=== PATIENT | male | born 1955 | race Caucasian/White ===

== ENCOUNTER 2017-12-15 19:44 | Inpatient (IN) | payer MEDICARE, OTHER, MEDICAID ==
[2017-12-15] MEDS ORDERED: FUROSEMIDE 40 MG INJ (19:46)
[2017-12-15] MEDS: IPRATROPIUM (NEB) 0.5 MG/2.5 ML AMP INH (19:58)
[2017-12-15] MEDS: ALBUTEROL 0.5% (NEB) 2.5 MG/0.5 ML AMP INH (19:58)
[2017-12-15] MEDS: FUROSEMIDE 40 MG INJ IV (20:01)
[2017-12-15 20:06] LABS: ADD MAN DIFF? NO
[2017-12-15 20:08] LABS: WHITE BLOOD COUNT 8.3 10^3/ul (4.8-10.8)
[2017-12-15 20:08] LABS: BASOPHIL # 0.1 10^3/ul (0.0-0.1); BASOPHILS % 0.7 % (0.0-2.0); EOSINOPHILS # 0.2 10^3/ul (0.0-0.5); EOSINOPHILS % 2.5 % (0.0-7.0); HEMATOCRIT 43.8 % (42.0-52.0); HEMOGLOBIN 13.6 g/dl (14.0-18.0); LYMPHOCYTES # 2.6 10^3/ul (0.8-2.9); LYMPHOCYTES % 31.7 % (15.0-51.0); MEAN CORPUSCULAR HEMOGLOBIN 26.6 pg (29.0-33.0); MEAN CORPUSCULAR HGB CONC 31.1 g/dl (32.0-37.0); MEAN CORPUSCULAR VOLUME 85.7 fl (82.0-101.0); MEAN PLATELET VOLUME 11.1 fl (7.4-10.4); MONOCYTE # 0.7 10^3/ul (0.3-0.9); MONOCYTES % 8.9 % (0.0-11.0); NEUTROPHIL # 4.7 10^3/ul (1.6-7.5); NEUTROPHILS % 55.8 % (39.0-77.0); PLATELET COUNT 208 10^3/UL (140-415); RED BLOOD COUNT 5.11 10^6/ul (4.70-6.10); RED CELL DISTRIBUTION WIDTH 14.5 % (11.5-14.5)
[2017-12-15] MEDS: NITROGLYCERIN 50 MG/D5W (PMX) 250 ML IV (20:17)
[2017-12-15 20:25] LABS: ALANINE AMINOTRANSFERASE 46 IU/L (13-69); ALBUMIN 4.7 g/dl (3.3-4.9); ALBUMIN/GLOBULIN RATIO 1.38; ALKALINE PHOSPHATASE 62 IU/L (42-121); ANION GAP 18 (8-16); ASPARTATE AMINO TRANSFERASE 41 IU/L (15-46); BILIRUBIN,INDIRECT 0.7 mg/dl (0-1.1); BILIRUBIN,TOTAL 0.7 mg/dl (0.2-1.3); BLOOD UREA NITROGEN 18 mg/dl (7-20); CALCIUM 8.9 mg/dl (8.4-10.2); CARBON DIOXIDE 28 mmol/L (21-31); CHLORIDE 102 mmol/L (97-110); CREATINE KINASE 224 IU/L (23-200); CREATININE 0.93 mg/dl (0.61-1.24); GLUCOSE 213 mg/dl (70-220); POTASSIUM 3.8 mmol/L (3.5-5.1); SODIUM 144 mmol/L (135-144); TOTAL PROTEIN 8.1 g/dl (6.1-8.1)
[2017-12-15 20:34] LABS: LACTIC ACID 2.9 mmol/L (0.5-2.0)
[2017-12-15 20:35] LABS: INR 0.94; PARTIAL THROMBOPLASTIN TIME 28.5 Sec (25.0-35.0); PROTIME 12.7 Sec (11.9-14.9)
[2017-12-15 20:37] LABS: B-TYPE NATRIURETIC PEPTIDE 1020 PG/ML (0-125); CK INDEX 1.1
[2017-12-15 20:39] LABS: ADD UMIC YES; CK-MB 2.43 ng/ml (0.0-2.4); TROPONIN-I < 0.012 ng/ml (0.000-0.120); UR ASCORBIC ACID NEGATIVE (NEGATIVE); UR BILIRUBIN (Dip) NEGATIVE (NEGATIVE); UR BLOOD (Dip) NEGATIVE (NEGATIVE); UR CLARITY CLOUDY (CLEAR); UR COLOR YELLOW (YELLOW); UR GLUCOSE (Dip) 2+ mg/dL (NEGATIVE); UR KETONES (Dip) NEGATIVE (NEGATIVE); UR LEUKOCYTE ESTERASE (Dip) NEGATIVE Leu/ul (NEGATIVE); UR NITRITE (Dip) NEGATIVE (NEGATIVE); UR RBC 0 /HPF (0-5); UR SPECIFIC GRAVITY (Dip) 1.011 (1.003-1.030); UR TOTAL PROTEIN (Dip) 3+ mg/dl (NEGATIVE); UR UROBILINOGEN (Dip) NEGATIVE (NEGATIVE); UR WBC 13 /HPF (0-5)
[2017-12-15 21:50] LABS: AADO2 Arterial 295.9 mmHg (7.0-24.0); Allen Test ACCEPTAB; Arterial Base Excess 2.8 mmol/L (-3.0-3); Arterial Blood Gas Oxygen Sat 99.4 mmHG (95.0-98.0); Arterial COHb 0.3 % (0.0-3.0); Arterial Fraction of Oxyhgb 98.7 % (93.0-99.0); Arterial HCO3 27.6 mmol/L (22.0-26.0); Arterial MetHb 0.4 % (0.0-1.5); Arterial Total Hemglobin 13.4 g/dl (12.0-18.0); Blood Gas IEPAP 15/5; Blood Gas PS 10; MODE BCPAP; Site Right Radial
[2017-12-15 22:36] LABS: LACTIC ACID 1.2 mmol/L (0.5-2.0)
[2017-12-15] MEDS: CEFTRIAXONE 1 GM/50 ML (PMX) 50 ML IVPB (23:13)
[2017-12-16] MEDS ORDERED: morphine 2 MG INJ IV (05:00)
[2017-12-16] MEDS ORDERED: ONDANSETRON 4 MG INJ IV (05:00)
[2017-12-16] MEDS: FUROSEMIDE 20 MG INJ IV (05:56)
[2017-12-16 06:55] LABS: ADD MAN DIFF? NO
[2017-12-16 07:01] LABS: BASOPHILS % 0.7 % (0.0-2.0); EOSINOPHILS # 0.1 10^3/ul (0.0-0.5); EOSINOPHILS % 1.7 % (0.0-7.0); HEMATOCRIT 38.1 % (42.0-52.0); LYMPHOCYTES # 1.7 10^3/ul (0.8-2.9); LYMPHOCYTES % 28.2 % (15.0-51.0); MEAN CORPUSCULAR HGB CONC 31.5 g/dl (32.0-37.0); MEAN CORPUSCULAR VOLUME 85.8 fl (82.0-101.0); MEAN PLATELET VOLUME 11.3 fl (7.4-10.4); MONOCYTE # 0.7 10^3/ul (0.3-0.9); MONOCYTES % 10.9 % (0.0-11.0); NEUTROPHIL # 3.5 10^3/ul (1.6-7.5); NEUTROPHILS % 58.2 % (39.0-77.0); PLATELET COUNT 158 10^3/UL (140-415); RED BLOOD COUNT 4.44 10^6/ul (4.70-6.10); RED CELL DISTRIBUTION WIDTH 14.8 % (11.5-14.5)
[2017-12-16 07:23] LABS: HEMOGLOBIN A1C 6.4 % (0-5.9)
[2017-12-16 07:35] LABS: ALANINE AMINOTRANSFERASE 41 IU/L (13-69); ALBUMIN 3.8 g/dl (3.3-4.9); ALBUMIN/GLOBULIN RATIO 1.31; ALKALINE PHOSPHATASE 49 IU/L (42-121); ANION GAP 13 (8-16); ASPARTATE AMINO TRANSFERASE 28 IU/L (15-46); BILIRUBIN,INDIRECT 0.8 mg/dl (0-1.1); BILIRUBIN,TOTAL 0.8 mg/dl (0.2-1.3); BLOOD UREA NITROGEN 17 mg/dl (7-20); CALCIUM 8.4 mg/dl (8.4-10.2); CARBON DIOXIDE 32 mmol/L (21-31); CHLORIDE 104 mmol/L (97-110); CHOL/HDL RATIO 2.4 RATIO; CHOLESTEROL 148 mg/dl (100-200); CREATININE 0.77 mg/dl (0.61-1.24); GLUCOSE 97 mg/dl (70-220); HDL CHOLESTEROL 60 mg/dl (30-78); LDL CHOLESTEROL,CALCULATED 79 mg/dl; MAGNESIUM 1.9 mg/dl (1.7-2.5); PHOSPHORUS 4.9 mg/dl (2.5-4.9); POTASSIUM 3.3 mmol/L (3.5-5.1); SODIUM 146 mmol/L (135-144); TOTAL PROTEIN 6.7 g/dl (6.1-8.1); TRIGLYCERIDES 47 mg/dl (0-149)
[2017-12-16] MEDS ORDERED: ALBUTEROL/IPRATROPIUM (NEB) 3 ML AMP (07:55)
[2017-12-16 08:08] LABS: TROPONIN-I 0.278 ng/ml (0.000-0.120)
[2017-12-16] MEDS: ALBUTEROL/IPRATROPIUM (NEB) 3 ML AMP HHN ×4 (08:23→20:16)
[2017-12-16] MEDS: HEPARIN 5,000 UNIT/0.5 ML VIAL SC (09:17)
[2017-12-16] MEDS ORDERED: PROVENTIL HFA 6.7GM INHALER INH (10:00)
[2017-12-16] MEDS ORDERED: ALPRAZOLAM 0.25 MG TAB PO (10:00)
[2017-12-16] MEDS ORDERED: ALBUTEROL/IPRATROPIUM (NEB) 3 ML AMP HHN (10:00)
[2017-12-16] MEDS: BENAZEPRIL 20 MG TAB PO (11:47)
[2017-12-16] MEDS: CREON (24K-76K-120K) 1 CAP PO ×2 (11:47→18:00)
[2017-12-16] MEDS: ASPIRIN (EC) 325 MG TAB PO (11:48)
[2017-12-16] MEDS: AMLODIPINE 10 MG TAB PO (11:48)
[2017-12-16] MEDS: LORATADINE 10 MG TAB PO (11:48)
[2017-12-16] MEDS: POTASSIUM CHLORIDE 100 ML IVPB ×2 (11:48→15:24)
[2017-12-16 14:29] LABS: B-TYPE NATRIURETIC PEPTIDE 1540 PG/ML (0-125)
[2017-12-16 14:35] LABS: TROPONIN-I 0.406 ng/ml (0.000-0.120)
[2017-12-16] MEDS: BUDESONIDE (NEB) 0.5MG/2ML AMP HHN ×2 (15:34→20:16)
[2017-12-16] MEDS ORDERED: HEPARIN 1000 UNITS/ML 10 ML INJ IV (16:00)
[2017-12-16] MEDS: DIGOXIN 0.125 MG TAB PO (16:14)
[2017-12-16] MEDS: HEPARIN 1000 UNITS/ML 10 ML INJ IV (16:15)
[2017-12-16] MEDS: HEPARIN 25000 UNITS/250 ML 250 ML IV (16:18)
[2017-12-16 16:30] LABS: ADD MAN DIFF? NO
[2017-12-16 16:33] LABS: BASOPHILS % 0.6 % (0.0-2.0); EOSINOPHILS # 0.1 10^3/ul (0.0-0.5); EOSINOPHILS % 2.4 % (0.0-7.0); HEMATOCRIT 40.4 % (42.0-52.0); HEMOGLOBIN 12.6 g/dl (14.0-18.0); LYMPHOCYTES # 1.3 10^3/ul (0.8-2.9); LYMPHOCYTES % 24.7 % (15.0-51.0); MEAN CORPUSCULAR HEMOGLOBIN 26.6 pg (29.0-33.0); MEAN CORPUSCULAR HGB CONC 31.2 g/dl (32.0-37.0); MEAN CORPUSCULAR VOLUME 85.2 fl (82.0-101.0); MEAN PLATELET VOLUME 11.1 fl (7.4-10.4); MONOCYTE # 0.6 10^3/ul (0.3-0.9); MONOCYTES % 11.6 % (0.0-11.0); NEUTROPHIL # 3.3 10^3/ul (1.6-7.5); NEUTROPHILS % 60.5 % (39.0-77.0); PLATELET COUNT 175 10^3/UL (140-415); RED BLOOD COUNT 4.74 10^6/ul (4.70-6.10); RED CELL DISTRIBUTION WIDTH 14.6 % (11.5-14.5)
[2017-12-16 16:33] LABS: WHITE BLOOD COUNT 5.4 10^3/ul (4.8-10.8)
[2017-12-16 17:00] LABS: INR 1.05; PROTIME 13.8 Sec (11.9-14.9); PT RATIO 1.1
[2017-12-16 17:01] LABS: PARTIAL THROMBOPLASTIN TIME 32.3 Sec (25.0-35.0)
[2017-12-16] MEDS: FUROSEMIDE 40 MG INJ IV (18:00)
[2017-12-16] MEDS: CEFTRIAXONE 1 GM/50 ML (PMX) 50 ML IVPB (18:01)
[2017-12-16] MEDS: TAMSULOSIN (SR) 0.4 MG CAP PO (20:26)
[2017-12-16] MEDS: ATORVASTATIN 10 MG TAB PO (20:26)
[2017-12-16] MEDS: MONTELUKAST 10 MG TAB PO (20:27)
[2017-12-16] MEDS: PAROXETINE 20 MG TAB PO (20:27)
[2017-12-16] MEDS ORDERED: NON-FORMULARY/PATIENT OWN MED (Lovastatin* (Altoprev*) 40 MG) PO ×2 (21:00)
[2017-12-16] MEDS ORDERED: PAROXETINE 20 MG TAB PO (21:00)
[2017-12-16] MEDS ORDERED: TAMSULOSIN (SR) 0.4 MG CAP PO (21:00)
[2017-12-16] MEDS ORDERED: MONTELUKAST 10 MG TAB PO (21:00)
[2017-12-16 21:27] LABS: TROPONIN-I 0.419 ng/ml (0.000-0.120)
[2017-12-16] MEDS ORDERED: VANCOMYCIN IV PER PHARMACY XX (23:30)
[2017-12-17] MEDS: VANCOMYCIN 2 GM in SOD CHLORIDE 0.9% 500 ML IVPB (00:36)
[2017-12-17] MEDS: ARTIFICIAL TEARS 15 ML OPH BOTH EYES ×2 (00:36→20:14)
[2017-12-17] MEDS: FUROSEMIDE 40 MG INJ IV ×2 (05:12→17:31)
[2017-12-17 06:34] LABS: ADD MAN DIFF? NO
[2017-12-17 06:41] LABS: BASOPHILS % 0.7 % (0.0-2.0); EOSINOPHILS # 0.2 10^3/ul (0.0-0.5); EOSINOPHILS % 4.3 % (0.0-7.0); HEMATOCRIT 40.5 % (42.0-52.0); HEMOGLOBIN 12.8 g/dl (14.0-18.0); LYMPHOCYTES # 1.9 10^3/ul (0.8-2.9); LYMPHOCYTES % 35.1 % (15.0-51.0); MEAN CORPUSCULAR HEMOGLOBIN 27.1 pg (29.0-33.0); MEAN CORPUSCULAR HGB CONC 31.6 g/dl (32.0-37.0); MEAN CORPUSCULAR VOLUME 85.6 fl (82.0-101.0); MONOCYTE # 0.7 10^3/ul (0.3-0.9); MONOCYTES % 12.8 % (0.0-11.0); NEUTROPHIL # 2.5 10^3/ul (1.6-7.5); NEUTROPHILS % 46.9 % (39.0-77.0); PLATELET COUNT 159 10^3/UL (140-415); RED BLOOD COUNT 4.73 10^6/ul (4.70-6.10); RED CELL DISTRIBUTION WIDTH 14.6 % (11.5-14.5)
[2017-12-17 06:41] LABS: WHITE BLOOD COUNT 5.4 10^3/ul (4.8-10.8)
[2017-12-17 08:03] LABS: ANION GAP 13 (8-16); BLOOD UREA NITROGEN 15 mg/dl (7-20); CALCIUM 8.6 mg/dl (8.4-10.2); CARBON DIOXIDE 34 mmol/L (21-31); CHLORIDE 104 mmol/L (97-110); CREATININE 0.87 mg/dl (0.61-1.24); GLUCOSE 100 mg/dl (70-220); PHOSPHORUS 3.2 mg/dl (2.5-4.9); POTASSIUM 3.1 mmol/L (3.5-5.1); SODIUM 148 mmol/L (135-144)
[2017-12-17] MEDS ORDERED: BENAZEPRIL 20 MG TAB PO (09:00)
[2017-12-17] MEDS ORDERED: AMLODIPINE 10 MG TAB PO (09:00)
[2017-12-17] MEDS ORDERED: ASPIRIN (EC) 325 MG TAB PO (09:00)
[2017-12-17] MEDS ORDERED: DIGOXIN 0.125 MG TAB PO (09:00)
[2017-12-17] MEDS ORDERED: NON-FORMULARY/PATIENT OWN MED (Olopatadine HCl (Pazeo) 2.5 ML) OP (09:00)
[2017-12-17] MEDS: ASPIRIN (EC) 325 MG TAB PO (09:10)
[2017-12-17] MEDS: BENAZEPRIL 20 MG TAB PO (09:11)
[2017-12-17] MEDS: AMLODIPINE 10 MG TAB PO (09:11)
[2017-12-17] MEDS: CREON (24K-76K-120K) 1 CAP PO ×3 (09:11→17:36)
[2017-12-17] MEDS: LORATADINE 10 MG TAB PO (09:12)
[2017-12-17] MEDS: ALBUTEROL/IPRATROPIUM (NEB) 3 ML AMP HHN ×4 (09:25→20:28)
[2017-12-17] MEDS: BUDESONIDE (NEB) 0.5MG/2ML AMP HHN ×2 (09:25→20:00)
[2017-12-17] MEDS ORDERED: POTASSIUM CHLORIDE 100 ML IVPB (09:30)
[2017-12-17] MEDS: POTASSIUM CHLORIDE (SR) 20 MEQ TAB PO (10:16)
[2017-12-17] MEDS: POTASSIUM CHLORIDE 20 MEQ POWDER FOR ORAL SOLN PO (10:16)
[2017-12-17] MEDS: VANCOMYCIN 1.5 GM in SOD CHLORIDE 0.9% 250 ML IVPB ×2 (12:49→23:43)
[2017-12-17] MEDS: DIGOXIN 0.125 MG TAB PO (12:49)
[2017-12-17] MEDS: CEFTRIAXONE 1 GM/50 ML (PMX) 50 ML IVPB (17:31)
[2017-12-17] MEDS ORDERED: MAGNESIUM HYDROXIDE 30ML CUP PO (20:00)
[2017-12-17] MEDS: TAMSULOSIN (SR) 0.4 MG CAP PO (20:14)
[2017-12-17] MEDS: MONTELUKAST 10 MG TAB PO (20:14)
[2017-12-17] MEDS: PAROXETINE 20 MG TAB PO (20:14)
[2017-12-17] MEDS: ATORVASTATIN 10 MG TAB PO (20:14)
[2017-12-17] MEDS: SENNA TAB PO (20:15)
[2017-12-18] MEDS: ALPRAZOLAM 0.25 MG TAB PO (02:16)
[2017-12-18] MEDS: FUROSEMIDE 40 MG INJ IV ×2 (05:23→17:30)
[2017-12-18 06:12] LABS: ADD MAN DIFF? NO
[2017-12-18 06:25] LABS: WHITE BLOOD COUNT 5.1 10^3/ul (4.8-10.8)
[2017-12-18 06:25] LABS: BASOPHILS % 0.8 % (0.0-2.0); EOSINOPHILS # 0.3 10^3/ul (0.0-0.5); EOSINOPHILS % 5.7 % (0.0-7.0); HEMATOCRIT 41.7 % (42.0-52.0); HEMOGLOBIN 13.1 g/dl (14.0-18.0); LYMPHOCYTES # 1.6 10^3/ul (0.8-2.9); LYMPHOCYTES % 31.5 % (15.0-51.0); MEAN CORPUSCULAR HEMOGLOBIN 26.7 pg (29.0-33.0); MEAN CORPUSCULAR HGB CONC 31.4 g/dl (32.0-37.0); MEAN CORPUSCULAR VOLUME 85.1 fl (82.0-101.0); MONOCYTE # 0.6 10^3/ul (0.3-0.9); MONOCYTES % 11.5 % (0.0-11.0); NEUTROPHIL # 2.6 10^3/ul (1.6-7.5); NEUTROPHILS % 50.1 % (39.0-77.0); PLATELET COUNT 147 10^3/UL (140-415); RED CELL DISTRIBUTION WIDTH 14.8 % (11.5-14.5)
[2017-12-18 07:11] LABS: ANION GAP 13 (8-16); BLOOD UREA NITROGEN 23 mg/dl (7-20); CALCIUM 8.9 mg/dl (8.4-10.2); CARBON DIOXIDE 33 mmol/L (21-31); CHLORIDE 106 mmol/L (97-110); CREATININE 0.94 mg/dl (0.61-1.24); GLUCOSE 99 mg/dl (70-220); PHOSPHORUS 3.8 mg/dl (2.5-4.9); POTASSIUM 3.5 mmol/L (3.5-5.1); SODIUM 148 mmol/L (135-144)
[2017-12-18] MEDS: ALBUTEROL/IPRATROPIUM (NEB) 3 ML AMP HHN ×4 (08:36→20:17)
[2017-12-18] MEDS: SENNA TAB PO ×2 (08:40→20:31)
[2017-12-18] MEDS: LORATADINE 10 MG TAB PO (08:41)
[2017-12-18] MEDS: ASPIRIN (EC) 81 MG TAB PO (08:41)
[2017-12-18] MEDS: AMLODIPINE 10 MG TAB PO (08:42)
[2017-12-18] MEDS: CREON (24K-76K-120K) 1 CAP PO ×3 (08:42→17:30)
[2017-12-18] MEDS: BENAZEPRIL 20 MG TAB PO (08:42)
[2017-12-18] MEDS: BUDESONIDE (NEB) 0.5MG/2ML AMP HHN ×2 (08:48→20:26)
[2017-12-18] MEDS ORDERED: ASPIRIN (EC) 325 MG TAB PO (09:00)
[2017-12-18] MEDS: POTASSIUM CHLORIDE (SR) 20 MEQ TAB PO (09:39)
[2017-12-18] MEDS: DIGOXIN 0.125 MG TAB PO (12:25)
[2017-12-18] MEDS ORDERED: morphine LIQ (10 MG/5 ML) CUP PO (15:00)
[2017-12-18] MEDS ORDERED: VITAMIN A & D 5 GM OINT PACKET TOP (20:28)
[2017-12-18] MEDS: MONTELUKAST 10 MG TAB PO (20:31)
[2017-12-18] MEDS: PAROXETINE 20 MG TAB PO (20:31)
[2017-12-18] MEDS: TAMSULOSIN (SR) 0.4 MG CAP PO (20:31)
[2017-12-18] MEDS: ATORVASTATIN 10 MG TAB PO (20:37)
[2017-12-19] MEDS: ALPRAZOLAM 0.25 MG TAB PO (03:26)
[2017-12-19] MEDS: ALBUTEROL/IPRATROPIUM (NEB) 3 ML AMP HHN ×2 (09:02→13:00)
[2017-12-19] MEDS: BUDESONIDE (NEB) 0.5MG/2ML AMP HHN (09:09)
[2017-12-19] MEDS: AMLODIPINE 10 MG TAB PO (09:30)
[2017-12-19] MEDS: ASPIRIN (EC) 81 MG TAB PO (09:30)
[2017-12-19] MEDS: CREON (24K-76K-120K) 1 CAP PO ×2 (09:30→12:17)
[2017-12-19] MEDS: SENNA TAB PO (09:30)
[2017-12-19] MEDS: LORATADINE 10 MG TAB PO (09:31)
[2017-12-19] MEDS: FUROSEMIDE 20 MG TAB PO (09:31)
[2017-12-19] MEDS: BENAZEPRIL 20 MG TAB PO (09:32)
[2017-12-19] MEDS: DIGOXIN 0.125 MG TAB PO (12:17)
== END 2017-12-19 14:29 | disposition home or self-care (01) | DRG 280 ==
LOC: TEL 23:30 → E/R 19:44
PROC: 5A09357 Assistance with Respiratory Ventilation, Less than 24 Consecutive Hours, Continuous Positive Airway Pressure (ICD-10-PCS; principal; 2017-12-15)
PROC: 4A033R1 Measurement of Arterial Saturation, Peripheral, Percutaneous Approach (ICD-10-PCS; 2017-12-15)
DX: I11.0 Hypertensive heart disease with heart failure (principal); I21.A1 Myocardial infarction type 2; J96.00 Acute respiratory failure, unspecified whether with hypoxia or hypercapnia; N39.0 Urinary tract infection, site not specified; J45.901 Unspecified asthma with (acute) exacerbation; I50.23 Acute on chronic systolic (congestive) heart failure; E78.00 Pure hypercholesterolemia, unspecified; I25.5 Ischemic cardiomyopathy; F32.9 Major depressive disorder, single episode, unspecified; F41.9 Anxiety disorder, unspecified; J44.9 Chronic obstructive pulmonary disease, unspecified; I25.10 Atherosclerotic heart disease of native coronary artery without angina pectoris; Z95.5 Presence of coronary angioplasty implant and graft; Z79.82 Long term (current) use of aspirin; Z95.810 Presence of automatic (implantable) cardiac defibrillator
CPT/HCPCS: 36415; 36600; 71045; 80048; 80053; 80061; 81001; 82550; 82553; 82803; 83036; 83605; 83735; 83880; 84100; 84443; 84484; 85025; 85610; 85730; 87040; 93005; 93306; 94640; 94644; 94660; 94664; 96374; 96375; 99291-25